=== PATIENT | male | born 1990 | race Asian ===

== ENCOUNTER 2016-08-03 01:14 | Inpatient (IN) | payer OTHER ==
[~2016-08-03] VITALS: Ht 180.3 cm; Wt 74.8 kg
[2016-08-03] MEDS ORDERED: CELE50CA PO (01:32)
[2016-08-03] MEDS ORDERED: COLA100C3 PO (01:33)
[2016-08-03] MEDS ORDERED: MORPPOW (01:35)
[2016-08-03] MEDS ORDERED: OXYC1TAB23 PO (01:36)
[2016-08-03 02:03] LABS: BASO % 0.2 % (0.0-1.0); EOS # 0.3 K/mm3 (0.0-0.50); EOS % 2.2 % (0.0-3.0); LARGE UNSTAINED CELL # 0.1 K/mm3 (0.0-0.4); LARGE UNSTAINED CELL % 0.4 % (0.0-4.0); LYMPH # 0.7 K/mm3 (1.5-6.5); LYMPH % 4.8 % (24.0-44.0); MEAN CORPUSCULAR HEMOGLOBIN 33.2 pg (27.0-33.0); MEAN CORPUSCULAR VOLUME 92.2 fl (80.0-96.0); MONO # 0.5 K/mm3 (0.0-0.8); MONO % 3.6 % (0.0-5.0); NEUTROPHILS % 88.8 % (36.0-66.0); PLATELET COUNT, AUTOMATED 191 k/mm3 (150-450); RED CELL DISTRIBUTION WIDTH 11.6 % (11.5-14.5); WHITE BLOOD COUNT 13.5 K/mm3 (4.0-10.0)
[2016-08-03 02:21] LABS: ANION GAP 7 MEQ/L (8-16); BLOOD UREA NITROGEN 21 MG/DL (7-18); CALCIUM LEVEL 9.2 MG/DL (8.5-10.1); CARBON DIOXIDE LEVEL 32 MEQ/L (21-32); CHLORIDE LEVEL 100 MEQ/L (98-107); CREATININE FOR GFR 1.08 MG/DL (0.70-1.30); GLOMERULAR FILTRATION RATE > 60.0 (>60); GLUCOSE, FASTING 108 MG/DL (70-105); POTASSIUM SERUM 3.7 MEQ/L (3.5-5.1); SODIUM LEVEL 139 MEQ/L (136-145)
[2016-08-03] MEDS ORDERED: ACETAMINOPHEN TAB 650MG DOSE (2X325MG) PO ONE (06:15)
--- NOTE | 2016-08-03 07:58 | REP ---
Clinical: Status post arthroplasty with fever and pain. Technique: Directed real time ultrasound examination of the left hip using curved array transducer. Findings: Ultrasound examination of the left hip status post arthroscopy demonstrates normal subcutaneous tissues and joint space. No fluid collection or drainable collection/abscess noted. Impression: No discrete fluid collection or drainable collection/abscess. Signed by Christopher Pedro MD 08/03/2016 07:50 A
[2016-08-03] MEDS ORDERED: MORPHINE 4 MG/ML 1ML SYRINGE IV ONE (08:15)
[2016-08-03] MEDS ORDERED: ONDANSETRON 4MG/2ML VIAL (J2405) IV ONE (08:15)
[2016-08-03] MEDS ORDERED: CELE1CAP9 PO (11:17)
[2016-08-03] MEDS ORDERED: MORP15TASA PO (11:17)
[2016-08-03] MEDS ORDERED: BISACODYL 5 MG TAB PO PRN (12:00)
[2016-08-03] MEDS ORDERED: ONDANSETRON 4 MG TAB (S0181) PO PRN (12:00)
--- NOTE | 2016-08-03 12:45 | REP ---
Bilateral lower extremity Duplex Doppler venous ultrasound: Real time compression and duplex Doppler interrogation of the bilateral lower extremity deep venous system is performed. Bilaterally, the common femoral, superficial femoral and popliteal veins are fully compressible with transducer pressure and demonstrate normal spontaneous and phasic flow, without evidence of deep venous thrombosis. Impression: No evidence of deep venous thrombosis of the bilateral lower extremity femoral popliteal venous system. Signed by Jaciel Guthrie MD 08/03/2016 12:37 P
[2016-08-03] MEDS: DOCUSATE SODIUM 100 MG CAP PO SCH ×2 (13:50→20:48)
[2016-08-03] MEDS: PERCOCET 5MG/325MG TAB PO PRN ×2 (13:51→20:49)
[2016-08-03] MEDS: NS 1,000 ML IV SCH (13:51)
[2016-08-03 14:00] VITALS: BP 120/60
[2016-08-03] MEDS: MORPHINE 15 MG SA TAB PO SCH ×2 (14:08→22:42)
--- NOTE | 2016-08-03 15:11 | REP ---
Chest one-view HISTORY: Fever Comparison: None The lungs are clear. The heart is normal in size. The pulmonary vasculature is normal in appearance. Impression: No acute disease. Signed by Cameron Valentino MD 08/03/2016 03:03 P
[2016-08-03 15:50] VITALS: BP 107/59
--- NOTE | 2016-08-03 20:48 | HPE ---
DATE OF ADMISSION: 08/03/2016 PRIMARY CARE PROVIDER: Dami Ashton HISTORY OF PRESENT ILLNESS: The patient is a 25-year-old male with no past medical problem, recently underwent arthroscopy with labrum repair on , postoperative day #4. The patient underwent surgery at [facility] by Dr. Ze Melton. The patient tolerated procedure well until yesterday he started complaining of a fever. He presented to the emergency room today, he was found to have a temperature of 102, he complained of chills and headaches as well as nausea. He denied any diarrhea, any abdominal pain, urinary symptoms. Denied any other upper respiratory tract infection or any cough or chest pain. In the emergency room the patient underwent an ultrasound of the left hip which showed no obvious abscess or pleural fluid collection. Dr. Hurt was contacted from the emergency room and he reviewed the ultrasound and stated that the hip is unlikely source of infection. The patient was admitted under hospitalist service for further investigation. REVIEW OF SYSTEMS: 12-point review of systems obtained all which was negative except for those mentioned above. PAST MEDICAL HISTORY: None. PAST SURGICAL HISTORY: [place] teeth removal. ALLERGIES: CEFTIN, reaction rash. SOCIAL HISTORY: The patient lives alone. Drinks alcohol occasionally. Denies any tobacco use. HOME MEDICATIONS: Include: - Celebrex 200 mg by mouth daily - Colace 100 mg by mouth twice a day - morphine sulfate extended release 15 mg by mouth twice a day - oxycodone/acetaminophen 5/325 1-2 tablets by mouth every 4 hours as needed for pain FAMILY HISTORY: Noncontributory. PHYSICAL FINDINGS: Vital signs: Initially on admission the patient had a temperature of 102.7, pulse of 109, respiratory rate 16, blood pressure is 123/61, pulse oximetry 97% on room air. HEENT: Pupils equally round and reactive to light and accommodation. NECK: Supple, no jugular venous distention (JVD). LUNGS: Clear to auscultation bilaterally. ABDOMEN: Soft, nontender, nondistended. EXTREMITIES: No erythema. Incision on the left hip appears intact. Does not appear to be swollen or warm. Sutures intact. No obvious drainage or discharge from the area. NEUROLOGIC: Cranial nerves II-XII grossly intact. No focal deficits. LABORATORY FINDINGS: WBC 13.5, hemoglobin 14.2, hematocrit 39.6, platelet count 191, sedimentation rate 49, sodium 139, potassium 3.7, chloride 100, BUN 21, creatinine 1.08, fasting glucose 108, lactic acid 1.7, C-reactive protein 10.7. Urinalysis was obtained, +1 bacteria, negative leukocyte esterase, 2 WBCs. ASSESSMENT/PLAN: 1. Fever. Unknown source at this time. Lower extremity ultrasound was done and ruled out deep venous thrombosis (DVT). Ultrasound of the left hip ruled out any abscess formation. Wound appears grossly intact. No obvious discharge. Blood cultures times one are pending. Urine cultures pending. Chest x-ray was ordered, showed no acute disease. The patient did not receive any antibiotics in the emergency room. Will continue to monitor. Await cultures. The patient had not had any fevers after the initial temperature of 102 in the emergency room. 2. Status post arthroscopy with a labrum repair. Postoperative day #4. The patient is to followup with Dr. Hurt upon discharge. Dr. Ahumada was called to the emergency room. He recommended outpatient followup, no need for orthopedics to see inpatient. 3. Deep venous thrombosis (DVT) prophylaxis. We will start the patient on subcutaneous Lovenox while in house. Activity: The patient is on nonweightbearing for the left hip per orthopedic instructions.
[2016-08-04] VITALS: BP 97/50
[2016-08-04] MEDS: NS 1,000 ML IV SCH ×2 (01:17→16:08)
[2016-08-04 04:00] VITALS: BP 95/51
[2016-08-04] MEDS: ACETAMINOPHEN TAB 650MG DOSE (2X325MG) PO PRN ×2 (04:49→16:08)
[2016-08-04 08:00] VITALS: BP 109/58
[2016-08-04 08:10] LABS: MEAN CORPUSCULAR HEMOGLOBIN 32.2 pg (27.0-33.0); MEAN CORPUSCULAR HGB CONC 34.4 g/dl (32.0-36.5); MEAN CORPUSCULAR VOLUME 93.8 fl (80.0-96.0); RED CELL DISTRIBUTION WIDTH 11.9 % (11.5-14.5); WHITE BLOOD COUNT 13.3 K/mm3 (4.0-10.0)
[2016-08-04] MEDS: DOCUSATE SODIUM 100 MG CAP PO SCH ×2 (08:13→20:29)
[2016-08-04] MEDS: ENOXAPARIN 40 MG/0.4 ML SYRINGE (J1650) SC SCH (08:13)
[2016-08-04] MEDS: MORPHINE 15 MG SA TAB PO SCH ×2 (08:14→20:29)
[2016-08-04 08:27] LABS: ALBUMIN 3.2 GM/DL (3.2-5.2); ALBUMIN/GLOBULIN RATIO 0.73 (1.00-1.93); ALKALINE PHOSPHATASE 58 U/L (45-117); ALT/SGPT 29 U/L (12-78); ANION GAP 7 MEQ/L (8-16); AST/SGOT 18 U/L (15-37); BLOOD UREA NITROGEN 14 MG/DL (7-18); CARBON DIOXIDE LEVEL 27 MEQ/L (21-32); CHLORIDE LEVEL 102 MEQ/L (98-107); CREATININE FOR GFR 0.96 MG/DL (0.70-1.30); GLOMERULAR FILTRATION RATE > 60.0 (>60); GLUCOSE, FASTING 112 MG/DL (70-105); MAGNESIUM LEVEL 2.1 MG/DL (1.8-2.4); SODIUM LEVEL 136 MEQ/L (136-145); TOTAL PROTEIN 7.6 GM/DL (6.4-8.2)
[2016-08-04 12:00] VITALS: BP 109/59
[2016-08-04] MEDS ORDERED: ISOVUE-370 76% 100ML VIAL (Q9967) As Ordered ONE (12:35)
--- NOTE | 2016-08-04 14:16 | REP ---
CT ANGIOGRAM OF THE CHEST: TECHNIQUE: Axial contrast enhanced images from the thoracic inlet to the upper abdomen using 100 mL Isovue 370 intravenous contrast material with multiplanar reformations. The lungs are clear with no infiltrate. There is no CT evidence of pulmonary embolism. The heart is normal in size. No infiltrates are seen. There is no pleural or pericardial effusion. There is no adenopathy. There is mild focal fatty infiltration anteriorly in the left lobe of the liver. No other upper abdominal abnormality is seen. IMPRESSION: No CT evidence of pulmonary embolism or acute infiltrate. 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 Signed by Jaciel Guthrie MD 08/04/2016 07:50 P
--- NOTE | 2016-08-04 14:20 | REP ---
CT LEFT FEMUR: CT of the left femur performed in the axial plane with sagittal and coronal reconstruction images. No IV contrast was administered. Left femur demonstrates no fracture or osseous destruction. There appears to be a small amount of fluid in the hip joint. Diffuse subcutaneous edema is seen in the soft tissues of the lateral aspect of the proximal thigh. There is also edema in the tapered soft tissues of the lateral thigh. There does appear to be a sliver of fluid density between the tensor fascia matthias and vastus lateralis. There are a few scattered tiny foci of air in this region as well. The fluid is located in the fascial plane and is likely not drainable. There is no other evidence of fluid collection. There is a small amount of air between the vastus medialis and adjacent adductor muscles in the proximal thigh. IMPRESSION: Diffuse edema in the proximal left thigh laterally in the superficial subcutaneous soft tissues as well as in the deeper soft tissues. Tiny sliver of fluid is seen in the fascial plane between the vastus lateralis and tensor fascia matthias with the thickness of the fluid density about 4 mm. A few scattered tiny foci of air are also seen in this region. The fluid does not appear to be drainable. Signed by Jaciel Guthrie MD 08/04/2016 07:51 P
--- NOTE | 2016-08-04 14:27 | IPN ---
DATE: 08/04/2016 SUBJECTIVE: The patient is seen and examined at the bedside. Chart has been reviewed. The patient had a maximum temperature (t-max) of 102.7 at 1:21 on 08/03/2016. He still complains of pain on flexion and extension at the left hip. Otherwise, he has not noted any worsening swelling of erythema at the site. No other issues, per nursing. Sedimentation rate remains elevated at 59 and C-reactive protein of 19.5. He denies any cough, dysuria, urgency, frequency, chills. No complaints of palpitations or shortness of breath. OBJECTIVE: Temperature 98, pulse 94, respiratory rate 16, blood pressure 109/58, 98% on room air. GENERAL: He is awake, alert, oriented. Answers questions appropriately. LUNGS: Clear to auscultation. No wheezes, rales, or rhonchi. HEART: S1, S2. Sinus rhythm. ABDOMEN: Soft, nontender, nondistended. EXTREMITIES: No pitting edema bilaterally. The patient has notable ecchymotic area on left anterior thigh around the hip area. There is no erythema. The incision of the left hip appears to be intact. No significant edema or erythema. Sutures are intact. No drainage or purulent discharge at the site. Range of motion is limited. Flexion is worse on extension. The patient complains of pain. LABORATORY DATA: White count 13.3, hemoglobin 12, hematocrit 37, platelet count 206. Sedimentation rate of 59, C-reactive protein of 19.5. Sodium 136, potassium 4, chloride 102, bicarbonate 27, BUN 14, creatinine 0.96, glucose of 112. MICROBIOLOGY: Blood culture with no growth. Urine culture from 08/03/2016 with no growth. IMAGING STUDIES: Vascular ultrasound of the lower extremities with no deep vein thrombosis (DVT). Extremity ultrasound with no fluid collection or drainable abscess of left hip. ASSESSMENT AND PLAN: This is a 25-year-old male status post left hip labral tear repair at [facility] by orthopedic surgeon, Dr. Ze Melton, last . The patient tolerated the procedure well until Wednesday evening when he developed a temperature of 102 at home with complaints of chills and headache and nausea. The patient denied worsening pain. No difficulty with ambulating aside from being off weight bearing on the left lower extremity. Ultrasound showed no drainable abscess or fluid collection. The patient remains with elevated sed rate and C-reactive protein, fever of 102.7 yesterday with white count of 13.3 with no identifiable infectious cause for his fever. CURRENT ISSUES: 1. Recurrent fever. At this time, the patient is currently on no antibiotic. Ultrasound of the left extremity shows no drainable abscess or fluid collection. Sed rate and C-reactive protein are both elevated. White count is slightly elevated. No empiric antibiotics until a source is identified. We will obtain a clearer picture with CT of the left hip, consult Dr. Shukri Yanez. No empiric antibiotics for now. Per Dr. Melton, orthopedic surgeon that operated on him last , unlikely to be a left labral repair issue, as there is no drainable abscess. Rule out other infectious etiology, such as viral symptoms. Therefore, we will check respiratory panel, methicillin resistant Staphylococcus aureus (MRSA) screen. Blood and urine cultures and chest x-ray are all negative. Rule out PE as possible source of fever due to risk factors of recent orthopedic surgery, and [address] from [place]. 2. Left labral tear repair. The patient follows with orthopedic surgery, Dr. Marcellus Ahumada was consulted by the emergency room who recommended no inpatient investigations by orthopedic surgery. 3. Deep vein thrombosis (DVT) prophylaxis. The patient is postoperative day #5 and drove 6 hours. Ultrasound of the lower extremities were negative. We will check CT of the chest to rule out pulmonary embolism despite no signs of tachycardia, diaphoresis or pleuritic chest pain or shortness of breath. [facility]
[2016-08-04 16:00] VITALS: BP 108/54
--- NOTE | 2016-08-04 18:15 | PHACANCOPD ---
PHARMACY VANCOMYCIN DOSING Pt Demographics Demographics Patient Age:25 , Weight:74.840 , Gender: male Adjusted Body Weight Date: 08/04/16, Adjusted Body Weight: [74.84] Kg Events Past 24 Hours Events Past 24 Hours: NO: Dialysis, Diuretic Therapy, Change in CrCl, Fever, Elevation in WBC, Pending Diagnostics, Pending Procedures, Other Vancomycin Vancomycin indication: Cellulitis Vancomycin Target Ranges: 15-20 mcg/ml Vancomycin Load Y/N: Yes Load Dose Date Time Vancomycin Load Dose:1.5g Date: 08/04/16 Time: 19:00 Vancomycin Dose Date: 08/04/16. Current Vancomycin Dose: [1g iv q8h] Intermittent Dosing?: No Labs Labs Item Value Date Time White Blood Count 13.5 K/mm3 H 08/03/16 0154 White Blood Count 13.3 K/mm3 H 08/04/16 0729 Creatinine 1.08 MG/DL 08/03/16 0154 Creatinine 0.96 MG/DL 08/04/16 0729 C-Reactive Protein, Quantitative 19.50 MG/DL H 08/04/16 0729 C-Reactive Protein, Quantitative 10.70 MG/DL H 08/03/16 1206 Vital Signs Label Value Date Time Patient Temperature 98.0 degrees F 08/04/16 0800 Temperature Source Temporal 08/04/16 0800 Patient Temperature 99.1 degrees F 08/04/16 1200 Temperature Source Temporal 08/04/16 1200 Patient Temperature 101.7 degrees F 08/04/16 1600 Temperature Source Temporal 08/04/16 1600 Patient Temperature 99.8 degrees F 08/04/16 1720 Temperature Source Temporal 08/04/16 1720 Micro Microbiology 08/03/16 Blood Culture - Preliminary, Resulted No growth after 24 hours . All specim... 08/04/16 MRSA Screen, Received Pending 08/04/16 Respiratory Virus Panel (PCR) ([facility]) - Final, Complete 08/03/16 Urine Culture - Final, Complete Creatinine Clearance Date:08/04/16. Creatinine Clearance: [125.3ml/min]. Assessment and Plan Maintaining Current Dose?: Yes Reason for dose change: No Dose Change Pharmacist Note Pharmacist Note Date: 08/04/16. Pharmacist note: Pt is a 25 y/o male being treated for cellulitis target trough 15-20mcg/ml. Pt does not have a history of vancomycin therapy here at [facility]. A loading dose of 1.5g was started 08/04 @19:00 followed by maintenance therapy of 1g iv q8h starting 08/05 @ 3:00. We will continue to monitor and adjust dose as needed. [facility] August 04, 2016 18:15
--- NOTE | 2016-08-04 18:29 | CR ---
DATE OF CONSULTATION: 08/04/2016 CONSULTATION REPORT FOR: Dr. Melinda Beatty REASON FOR CONSULTATION: Evaluation of fever in a patient who had left hip arthroplasty. 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 The patient had arthroscopic surgery for repair done by Dr. Ze Melton at [facility]. The patient had the surgery done last on 07/30/2016, was in the hospital for 24 hours and then came home on Wednesday. The patient started having fever on Wednesday and Wednesday up to 102. He was admitted to the hospital on 08/03/2016 with chills, fever up to 102 with headache and some nausea. He denies having any diarrhea, abdominal pain or vomiting. He denies any dysuria or drainage. He denies upper respiratory tract infection, chest pain, shortness of breath. The patient was admitted by the hospitalist for evaluation. PAST MEDICAL HISTORY: Negative. PAST SURGICAL HISTORY: [place] teeth removal, left hip labral tear status post arthroscopic surgery last week. SOCIAL HISTORY: He lives alone. He is . 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 He was not sick. He drinks alcohol occasionally. He denies any tobacco use. His father is a physician in [place]. He grew up in [place]. MEDICATIONS: - Celebrex 200 mg daily - Colace 100 mg twice a day - morphine - Percocet All started postoperatively. FAMILY HISTORY: Nonrevealing. PHYSICAL EXAMINATION: Healthy-looking gentleman in no acute distress, looks frustrated from being in the hospital. Temperature 101.7, pulse 103, respirations 14, blood pressure 108/54, oxygen saturation 98% on room air. HEART: Normal S1, S2 with no murmurs, rubs or gallops. LUNGS: Clear. No wheezes, rales, or rhonchi. ABDOMEN: Soft, nontender. No hepatosplenomegaly. BACK: No costovertebral angle (CVA) or lumbosacral tenderness. EXTREMITIES: No clubbing, cyanosis or edema. No calf tenderness. Left hip, normal range of motion. He is able to hip flex at least 90 degrees and externally rotate as well. He has a hematoma at the anterior thigh arthroscopically and some tenderness along that area but no significant redness. LABORATORY DATA: White count is 13.3, hemoglobin 12.8, hematocrit 37.3, platelets 206. ESR yesterday 49, today 59. Sodium 136, potassium 4, chloride 102, bicarbonate 27, BUN 14, creatinine 0.96, glucose 112, calcium 9, magnesium 2.1, AST 18, ALT 29, alkaline phosphatase 58, CRP 19.5, albumin 3.2. Blood culture was no growth after 24 hours on 08/03/2016. Urine culture was negative. Respiratory PCR panel was negative for 20 different pathogens. MRSA screen is pending. IMAGING STUDIES: CT angiogram done on 08/04/2016 had no PE. Chest x-ray had no acute disease. Vascular ultrasound showed no DVT. Extremity CT showed diffuse edema on the proximal left side laterally in the superficial subcutaneous soft tissue as well as the deeper tissues with a tiny sliver of fluid seen in the fascial plane between the vastus lateralis and tensor fascia matthias with thickness of the fluid about 4 mm. There is a few scattered tiny foci of air are seen in that region. The fluid does not appear to be drainable. This was read by Dr. Russell Guthrie. IMPRESSION: This is a 25-year-old gentleman who had left hip arthroscopic surgery for repair of a labral tear who developed postoperative fever on day number three with chills. White count of 13,000, sedimentation rate of 59, and a C-reactive protein (CRP) which has increased from 10.7 yesterday to 19.5. There has been no other foci of infection. Chest x-ray, chest CT, lower extremity DVT studies are all negative. Respiratory panel was negative for any respiratory viruses. The patient has no gastrointestinal (GI) or genitourinary () complaints. His only complaint is discomfort in his left thigh muscle which is worse than after surgery. He could have a mild cellulitis/myositis versus just fever from the hematoma. PLAN: Repeat another set of blood cultures as he had a recurrent fever and he has only had one blood culture done. The patient is allergic to cefuroxime and therefore, we will use IV vancomycin 1 gram every eight hours to see if that will break his fever. If it does and he feels better, he could be discharged home on oral Bactrim. I have discussed the case with his father who is a physician. He could follow him up as an outpatient and if he has recurrent fever, he will need to go back to [facility] to be evaluated by his surgeon. His father is agreeable. His mother is here and she was supposed to drive him back to [place] to spend another month at home for convalescence. The father is agreeable with that plan as well as the son. Make sure if the patient gets discharged that all of his films are given to him on a CD to take with him to his primary care provider and to his orthopedic surgeon.
[2016-08-04] MEDS: VANCOMYCIN HCL 1,000 MG, VIAL MATE ADAPTER 1 EACH in D5W 250 ML IV SCH (18:38)
[2016-08-04 20:00] VITALS: BP 111/55
[2016-08-04] MEDS ORDERED: VANCOMYCIN HCL 500 MG in D5W MINI-BAG PLUS 100 ML IV ONE (20:00)
[2016-08-05] VITALS: BP 97/53
[2016-08-05] MEDS: VANCOMYCIN HCL 1,000 MG, VIAL MATE ADAPTER 1 EACH in D5W 250 ML IV SCH ×3 (03:40→19:04)
[2016-08-05 04:00] VITALS: BP 99/53
[2016-08-05] MEDS: PERCOCET 5MG/325MG TAB PO PRN (07:17)
[2016-08-05 07:22] LABS: MEAN CORPUSCULAR HEMOGLOBIN 32.7 pg (27.0-33.0); MEAN CORPUSCULAR HGB CONC 35.1 g/dl (32.0-36.5); MEAN CORPUSCULAR VOLUME 93.3 fl (80.0-96.0); RED CELL DISTRIBUTION WIDTH 11.8 % (11.5-14.5); WHITE BLOOD COUNT 9.8 K/mm3 (4.0-10.0)
[2016-08-05 07:49] LABS: ALBUMIN 2.8 GM/DL (3.2-5.2); ALBUMIN/GLOBULIN RATIO 0.72 (1.00-1.93); ALKALINE PHOSPHATASE 60 U/L (45-117); ALT/SGPT 31 U/L (12-78); ANION GAP 8 MEQ/L (8-16); AST/SGOT 22 U/L (15-37); BILIRUBIN,TOTAL 0.8 MG/DL (0.2-1.0); BLOOD UREA NITROGEN 10 MG/DL (7-18); CALCIUM LEVEL 8.4 MG/DL (8.5-10.1); CARBON DIOXIDE LEVEL 28 MEQ/L (21-32); CHLORIDE LEVEL 103 MEQ/L (98-107); CREATININE FOR GFR 0.89 MG/DL (0.70-1.30); GLOMERULAR FILTRATION RATE > 60.0 (>60); GLUCOSE, FASTING 95 MG/DL (70-105); MAGNESIUM LEVEL 2.1 MG/DL (1.8-2.4); POTASSIUM SERUM 3.9 MEQ/L (3.5-5.1); SODIUM LEVEL 139 MEQ/L (136-145); TOTAL PROTEIN 6.7 GM/DL (6.4-8.2)
[2016-08-05 08:00] VITALS: BP 118/56
[2016-08-05] MEDS: ACETAMINOPHEN TAB 650MG DOSE (2X325MG) PO SCH ×3 (09:00→21:04)
[2016-08-05] MEDS: ENOXAPARIN 40 MG/0.4 ML SYRINGE (J1650) SC SCH (09:12)
[2016-08-05] MEDS: DOCUSATE SODIUM 100 MG CAP PO SCH ×2 (09:12→21:02)
[2016-08-05] MEDS: MORPHINE 15 MG SA TAB PO SCH ×2 (09:14→21:03)
[2016-08-05] MEDS ORDERED: KETOROLAC 30 MG/ML VIAL (J1885) IV ONE (10:15)
[2016-08-05] MEDS ORDERED: MORPHINE 30 MG TAB **MSIR PO PRN (10:15)
[2016-08-05] MEDS ORDERED: MOM 30ML SUSPENSION UDC PO PRN (10:15)
[2016-08-05] MEDS: NS 1,000 ML IV SCH ×2 (11:19→20:15)
[2016-08-05 12:00] VITALS: BP 104/56
--- NOTE | 2016-08-05 12:25 | IPN ---
DATE: 08/05/2016 The patient seen and examined at the bedside. The chart has been reviewed. This morning, the patient complains of worse pain than yesterday in the left anterior thigh. He has no worsening swelling. No chills. He had persistent low grade temperature of 100.0, currently on vancomycin every 8 hours at 1 gram. The patient is non-weight bearing on the left lower extremity, but still complains of severe limitation of activity. Temperature-maximum (T-max) 101.7, current temperature 100.0, pulse 81, respiratory rate 16, blood pressure 118/56, and 98% on room air. Generally, the patient is awake, alert and oriented times three, answering questions appropriately. Lungs are clear to auscultation. No wheezing, rales or rhonchi. Heart: S1, S2. Sinus rhythm. Abdomen: Soft. Nontender. Nondistended. Positive bowel sounds. Extremities: The patient has bruising on the left hip with left tender thigh and some edema laterally in the subcutaneous tissue. LABORATORY DATA: White count 9.8, hemoglobin 11, hematocrit 32, and platelets 187. Sedimentation rate 65. CRP 13. Sodium 139, potassium 3.9, chloride 103, bicarbonate 28, BUN 10, creatinine 0.89, glucose 95, CRP 13. Two sets of blood cultures 5, 2 and 3 still pending. ASSESSMENT AND PLAN: This is a 25-year-old with no past medical history who had a left hip labral tear status post arthroscopic surgery on who presents with a fever starting Wednesday/Wednesday up to 102 and complaints of chills. CT shows diffuse edema with a few scattered tiny foci of air, but no drainable abscess. White count 13, sedimentation rate 59, CRP to 19.5 CT of chest had no pulmonary embolism (PE). Lower extremity deep vein thrombosis (DVT) was negative. Respiratory panel negative. ASSESSMENT AND PLAN: 1. Recurrent fever. No drainable abscess on the site. Currently on IV vancomycin for possible cellulitis. Allergic to cefuroxime. The patient does not feel better, still complains of a lot of pain. Plans are for oral Bactrim as outpatient once the pain is improved. 2. Left hip labral tear repair. Followup with Dr. Melton or orthopedic surgery in [place]. This will be the patient's decision. At this time, continue with IV antibiotics and oral Bactrim as outpatient. Pain control - will change to morphine 15 mL every 4 hours as needed, Tylenol three times a day. Pain management consult. Nonweight bearing on the left lower extremity. Outpatient followup with his orthopedic surgeon. DISPOSITION: Await improvement in pain prior to discharge home. LUCINDA
[2016-08-05] MEDS: LIDOCAINE 5% OINT 30 GM TOP SCH ×3 (13:37→21:00)
[2016-08-05 16:00] VITALS: BP 110/54
[2016-08-05 21:00] VITALS: BP 104/57
[2016-08-06] VITALS (7 sets, daily range): BP systolic 93–127; BP diastolic 51–64
[2016-08-06] MEDS ORDERED: KETOROLAC 30 MG/ML VIAL (J1885) IV SCH
[2016-08-06] MEDS: VANCOMYCIN HCL 1,000 MG, VIAL MATE ADAPTER 1 EACH in D5W 250 ML IV SCH ×3 (03:37→19:03)
[2016-08-06] MEDS: ACETAMINOPHEN TAB 650MG DOSE (2X325MG) PO SCH ×3 (06:08→21:00)
[2016-08-06] MEDS ORDERED: FIORICET TAB PO ONE (08:15)
[2016-08-06] MEDS ORDERED: KETOROLAC 30 MG/ML VIAL (J1885) IV ONE (08:15)
--- NOTE | 2016-08-06 09:20 | IPN ---
DATE: 08/06/2016 Min is frustrated from being in the hospital. He states that the pain has localized to the left anterior thigh and he has noticed some induration in that area and warmth. He has severe pain when he steps on his foot, mostly in the anterior thigh again. He has normal range of motion of his hip and normal abduction. Temperature was 101.9 at 5:00 p.m. and currently 99.3, pulse 84, respirations 18, blood pressure 104/57, oxygen saturation 99% on room air. HEART: Normal S1, S2 with no murmurs, rubs or gallops. LUNGS: Clear. No wheezes, rales or rhonchi. ABDOMEN: Soft, nontender. EXTREMITIES: No edema. Left thigh induration measuring about 7 x 7 cm in the mid thigh area. Hip has normal flexion and abduction. LABORATORY DATA: White count 9.8, hemoglobin 11.6, hematocrit 32.9, platelets 65. Sodium 139, potassium 3.9, chloride 103, bicarbonate 28, BUN 10, creatinine 0.89, glucose 95, calcium 8.4. Liver profile normal. CRP 13.3, albumin 2.8. Blood cultures have been negative times 48 hours, two sets. Respiratory virus panel negative. Urine culture negative. Methicillin resistant Staphylococcus aureus (MRSA) screen is negative. Blood culture drawn on 08/05. IMPRESSION: 1. Postoperative fever after left hip arthroscopy for a labral tear. The most likely source is a localized skin and soft tissue infection of the left anterior thigh muscle. The patient has been on IV vancomycin for 24 hours. There has been some improvement in white count and CRP, but the patient now has more localized pain in the thigh area. PLAN: Obtain CT with contrast tomorrow to followup to see if there is a drainable abscess. If there is an abscess it will need to be drained by interventional radiology. Otherwise, we will continue with IV vancomycin once the patient is afebrile, then he could be switched to oral Bactrim for discharge. His mother is here and is planning to take him to [place] where he can followup there or at [place] with his orthopedic surgeon. Also orthopedics can see here in followup to discuss the case with his orthopedic surgeon in [place].
--- NOTE | 2016-08-06 09:31 | REP ---
CT LEFT FEMUR: CT left femur performed in the axial plane without IV contrast, with sagittal and coronal reconstruction images. Comparison made with prior study of 08/04/2016. Once again, the left femur appears essentially normal with no fracture or osseous destruction. Diffuse subcutaneous edema in the lateral thigh soft tissues is again noted and this has not significantly changed. There is significant decrease in the foci of scattered air in the soft tissues. A tiny amount of air is seen deep between the vastus medialis and adjacent adductor muscles. There is diffuse edema in the anterior compartment of the proximal thigh with poor definition of the facial planes. There again appears to be phlegmonous change or fluid in the fascial plane between the tensor fascia matthias and vastus lateralis. This appears to have slightly increased since the prior exam. However, evaluation for fluid is limited without IV contrast. IMPRESSION: Compared to the prior exam of 08/04/2016, the hypodensity in the fascial plane between the vastus lateralis and tensor fascia matthias has mildly increased in thickness to about 7 mm. However, it is difficult to evaluate if this represents increased phlegmonous change and edema versus fluid. Ultrasound would better evaluate for the presence of any drainable fluid. Signed by Jaciel Guthrie MD 08/07/2016 05:09 P
[2016-08-06 10:05] LABS: MEAN CORPUSCULAR HEMOGLOBIN 32.4 pg (27.0-33.0); MEAN CORPUSCULAR HGB CONC 34.2 g/dl (32.0-36.5); MEAN CORPUSCULAR VOLUME 94.9 fl (80.0-96.0); RED CELL DISTRIBUTION WIDTH 11.2 % (11.5-14.5); WHITE BLOOD COUNT 11.8 K/mm3 (4.0-10.0)
[2016-08-06] MEDS: DOCUSATE SODIUM 100 MG CAP PO SCH ×2 (10:26→21:01)
[2016-08-06 10:27] LABS: ALBUMIN/GLOBULIN RATIO 0.65 (1.00-1.93); ALKALINE PHOSPHATASE 67 U/L (45-117); ALT/SGPT 28 U/L (12-78); ANION GAP 11 MEQ/L (8-16); AST/SGOT 14 U/L (15-37); BLOOD UREA NITROGEN 11 MG/DL (7-18); CALCIUM LEVEL 8.7 MG/DL (8.5-10.1); CARBON DIOXIDE LEVEL 27 MEQ/L (21-32); CHLORIDE LEVEL 97 MEQ/L (98-107); CREATININE FOR GFR 0.91 MG/DL (0.70-1.30); GLOMERULAR FILTRATION RATE > 60.0 (>60); GLUCOSE, FASTING 143 MG/DL (70-105); POTASSIUM SERUM 3.6 MEQ/L (3.5-5.1); SODIUM LEVEL 135 MEQ/L (136-145); TOTAL PROTEIN 7.6 GM/DL (6.4-8.2)
[2016-08-06] MEDS: MORPHINE 15 MG SA TAB PO SCH ×2 (10:27→21:00)
[2016-08-06] MEDS: ENOXAPARIN 40 MG/0.4 ML SYRINGE (J1650) SC SCH (10:28)
[2016-08-06] MEDS: NS 1,000 ML IV SCH ×2 (10:46→19:03)
[2016-08-06] MEDS: LIDOCAINE 5% OINT 30 GM TOP SCH ×3 (10:48→21:00)
--- NOTE | 2016-08-06 13:21 | REP ---
ULTRASOUND LEFT THIGH SOFT TISSUES: Real-time sonographic evaluation of the left thigh soft tissues performed. Laterally there is an apparent small area of fluid containing low level echoes measuring 4.8 x 1.2 x 5.6 cm. There is surrounding soft tissue edema. There are tiny subcentimeter pockets of fluid in the subcutaneous soft tissues. Deep to the quadriceps muscles is a hypoechoic area measuring 4.4 x 2.0 x 1.6 cm which is of uncertain significance. This may represent hematoma. IMPRESSION: In the superior lateral left thigh soft tissues, there appears to be a small area of complex fluid 4.8 x 1.2 x 5.6 cm. Signed by Jaciel Guthrie MD 08/07/2016 05:12 P
--- NOTE | 2016-08-06 14:19 | IPN ---
DATE: 08/06/2016 The patient continues to have maximum temperature (t-max) of 101.9 on 08/05/2016 at 1700 hours and 100.0 at 4:00 a.m. this morning. He currently complains of increasing pain if he flexes at the hip, which is located in the left anterior thigh. He is currently eggshell touch toe weight bearing on the left lower extremity. No chills. No cough. No dysuria, urgency, frequency. VITAL SIGNS: Temperature 97.3, maximum temperature (t-max) of 101.9. Pulse 89, respiratory rate 18, blood pressure 127/50, and 98% on room air. GENERAL: Awake, alert and oriented to person, place and time. No respiratory distress. HEENT: Pupils are round, reactive to light and accommodation. Extraocular muscles are intact. LUNGS: Clear to auscultation. No wheezing, rales or rhonchi. HEART: S1, S2. Sinus rhythm. ABDOMEN: Soft. Nontender. Nondistended. Positive bowel sounds. No hepatosplenomegaly. EXTREMITIES: No pitting edema. Left anterior thigh continues to have significant edema, painful to touch. Left hip has ecchymotic areas and able to flex and extend but with some difficulty. Non-weight bearing. LABORATORY DATA: White count 11.8, hemoglobin 12, hematocrit 37, platelet count 277, sodium 135, potassium 3.6, chloride 97, bicarbonate 27, BUN 11, creatinine 0.91, glucose of 143. The patient's admission hemoglobin was 14 and current hemoglobin is 12.8. Blood culture, two sets on 08/04, 08/05 and 08/03 are all negative. Methicillin resistant Staphylococcus aureus (MRSA) screen negative. Respiratory panel negative. Urine culture negative. Repeat CT of the extremity on 08/06 shows hypodensity in the fascial plane between vastus lateralis and fascia matthias has mildly increased in thickness to 7 mm. Difficult to evaluate if this represents increased change or edema versus fluid. Ultrasound to evaluate drainable fluid. 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 Melton. Developed fever starting Wednesday and Wednesday up to 102, complains of chills. The patient was admitted for evaluation and fever to rule out abscess formation. No antibiotics were given. CT shows diffuse edema with a few scattered tiny foci of air, but no drainable abscess. Ultrasound was unremarkable with diffuse fluid, which was clear and no definitive drainable fluid. White count was 13,000, sedimentation rate was elevated, as well as CRP CT of chest showed no pulmonary embolism (PE). Lower extremity deep vein thrombosis (DVT) was negative. Respiratory panel, UA and blood cultures were all negative. Dr. Shukri Yanez has been consulted. CURRENT ISSUES: 1. Recurrent fever. No drainable abscess at the surgical the site. Repeat CT shows worsening edema but no definite abscess formation. Ultrasound recommended. We have ordered an ultrasound of the extremity, as well as orthopedic surgery consultation with Dr. Hurt. Currently on IV vancomycin 1 gram every 8 hours with worsening white count, recurrent fevers and elevation in sed rate and C-reactive protein. No changes in antibiotics unless recommended by Dr. Shukri Yanez, infectious disease specialist. 2. Left hip labral tear repair with postoperative fever. Per his orthopedic surgeon, Dr. Melton, at [place], [place], unlikely to be related to recent laparoscopic surgery. Unlikely to have developed significant hematoma in light of the fact that this was a laparoscopic surgery. Once fevers have resolved, recommendation from infectious disease is to discharge him back for immediate followup with his orthopedist at [place].
--- NOTE | 2016-08-06 14:44 | PHACANCOPD ---
PHARMACY VANCOMYCIN DOSING Pt Demographics Demographics Patient Age:25 , Weight:74.840 , Gender: male Adjusted Body Weight Date: 08/04/16, Adjusted Body Weight: [74.84] Kg Events Past 24 Hours Events Past 24 Hours: NO: Dialysis, Diuretic Therapy, Change in CrCl, Fever, Elevation in WBC, Pending Diagnostics, Pending Procedures, Other Vancomycin Vancomycin indication: Cellulitis Vancomycin Target Ranges: 15-20 mcg/ml Vancomycin Load Y/N: Yes Load Dose Date Time Vancomycin Load Dose:1.5g Date: 08/04/16 Time: 19:00 Vancomycin Dose Date: 08/04/16. Current Vancomycin Dose: [1g iv q8h] Intermittent Dosing?: No Labs Labs Item Value Date Time White Blood Count 13.3 K/mm3 H 08/04/16 0729 White Blood Count 9.8 K/mm3 08/05/16 0655 White Blood Count 11.8 K/mm3 H 08/06/16 0948 C-Reactive Protein, Quantitative 19.50 MG/DL H 08/04/16 0729 C-Reactive Protein, Quantitative 13.30 MG/DL H 08/05/16 0655 C-Reactive Protein, Quantitative 12.90 MG/DL H 08/06/16 0948 Creatinine 0.91 MG/DL 08/06/16 0948 Vancomycin Level Trough 14.6 UG/ML 08/06/16 0948 Vital Signs Label Value Date Time Patient Temperature 100.0 degrees F 08/06/16 0400 Temperature Source Oral 08/06/16 0400 Patient Temperature 98.6 degrees F 08/06/16 1200 Temperature Source Temporal 08/06/16 1200 Micro Microbiology 08/05/16 Blood Culture - Preliminary, Resulted No growth after 24 hours . All specim... 08/04/16 Blood Culture - Preliminary, Resulted No growth after 24 hours . All specim... 08/03/16 Blood Culture - Preliminary, Resulted No Growth after 72 hours. All specime... 08/04/16 MRSA Screen - Final, Complete 08/04/16 Respiratory Virus Panel (PCR) ([facility]) - Final, Complete 08/03/16 Urine Culture - Final, Complete Creatinine Clearance Date:08/04/16. Creatinine Clearance: [125.3ml/min]. Assessment and Plan Maintaining Current Dose?: Yes Reason for dose change: No Dose Change Pharmacist Note Pharmacist Note 08/06: Vanco trough came back at 14.6 today. His WBC is within normal limits, but is still experiencing fevers. CRP is trending down. Patient is experiencing increased pain around wound. Per Dr. Yanez's note he is continue his Vancomycin until he is afebrile then switch to PO Bactrim. We will continue to monitor and make adjustments as necessary. Date: 08/04/16. Pharmacist note: Pt is a 25 y/o male being treated for cellulitis target trough 15-20mcg/ml. Pt does not have a history of vancomycin therapy here at [facility]. A loading dose of 1.5g was started 08/04 @19:00 followed by maintenance therapy of 1g iv q8h starting 08/05 @ 3:00. We will continue to monitor and adjust dose as needed. COLTON MARTINEZ PHARMACY August 06, 2016 14:44
[2016-08-06] MEDS ORDERED: NS 1,000 ML IV ONE (16:00)
[2016-08-06] MEDS ORDERED: LIDOCAINE 1% MDV 20ML VIAL As Ordered ONE (16:03)
--- NOTE | 2016-08-06 16:58 | CR.PDOC ---
[facility] Consultation Consultation DATE OF CONSULTATION: August 03, 2016 at 05:48 REFERRING PROVIDER: Dr. Yanez, infectious disease ATTENDING PHYSICIAN: Dr. Miki Fry- Orthopedic surgery REASON FOR CONSULTATION/CHIEF COMPLAINT: Fevers s/p L hip arthroscopy. 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 Melton at [place]. Patients post operative course has been complicated by fever to 102F at home on POD3 for which he presented to the [facility] ER. Patient denies associated increasing hip pain with his fever. Patient was admitted to the hospitalist service and had extensive workup to include DVT studies, blood cultures, urine cultures, and hip ultrasound, all of which have been negative. Orthopedics was consulted on admission and suspicion for intraarticular hip infection was low given the lack of effusion on ultrasound. Patient earlier today had a superficial fluid collection drained by the interventional radiology service. Patient reports that his pain resolved yesterday. Last reported fever 24 hours ago. Has been on IV vancomycin for 24h. ALLERGIES: Please see below. HOME MEDICATIONS: Please see below. PAST MEDICAL HISTORY: 1. none. PAST SURGICAL HISTORY: 1. L hip scope per HPI 2. [place] tooth removal FAMILY HISTORY: non contributory SOCIAL HISTORY: Employment: Active duty job placement officer stationed at [employer] Tobacco use:none ETOH: none Illicit drug use: none IV drug use: none REVIEW OF SYSTEMS: CONSTITUTIONAL: + Fevers per HPI. CARDIOVASCULAR: No chest pain or palpitations. RESPIRATORY: No cough or wheeze. GENITOURINARY: No pain or burning with urination. MUSCULOSKELETAL: + recent hip arthroscopy with pain per HPI. GASTROINTESTINAL: NO nausea, vomiting, diarrhea. PHYSICAL EXAMINATION: VITAL SIGNS: Please see below. GENERAL APPEARANCE: Well nourished, appears stated age, NAD. RESPIRATORY: Non-labored breathing. CARDIOVASCULAR: 2+ DP/PT pulses, brisk capillary refill all digits LLE. ABDOMEN: non-tender, non distended. EXTREMITIES: Focused exam of the left hip demonstrates no pain with logroll. No pain with axial load of the hip. Arthroscopy wounds appear normal and well healing with no surrounding erythema or drainage. No surrounding induration. There is mild ecchymosis on the anterior aspect of the hip with mild tenderness around the area of recent aspiration. There is no palpable fluctuance in the anterior hip. LABORATORY DATA: Please see below. Recent CT scan and ultrasound identified a small superficial fluid collection that appeared to be slightly increased in size from earlier studies. CT scan difficult to interpret as it is difficult to distinguish between normal findings s/p hip arthroscopy ASSESSMENT/PLAN: 25 y/o male POD7 s/p L hip arthroscopy with post op fever. Pain has resolved and has been afebrile x 24 h after being on vancomycin IV x 48h. Post op intraarticular hip joint infection extremely unlikely given normal appearing wounds and benign hip exam with lack of effusion on multiple imaging studies 1. It is possible that a post op hematoma could be causing some pain, but there is minimal bleeding in arthroscopic hip surgery, so unlikely. 2. Based on hip exam, there is no indication for acute surgical intervention for surgical site infection 3. Recommend continued antibiotic treatment per ID recommendations. 4. Further imaging is of limited utility as it is difficult to distinguish between normal post op changes and a pathologic finding as it is rare to obtain such imaging in the acute post operative period. 5. Recommend discharge to home when deemed appropriate by hospitalist and routine follow up with Dr. Melton as scheduled Vital Signs/I&O Vital Signs Date Time Temp Pulse Resp B/P (MAP) Pulse Ox O2 Delivery O2 Flow Rate FiO2 08/06/16 16:00 98.6 88 18 122/64 (83) 100 Room Air I&O- Last 24 Hours up to 6 AM 08/06/16 06:00 Intake Total 1850 ml Output Total 3100 ml Balance -1250 ml Laboratory Data Labs 24H Laboratory Tests 2 08/06/16 09:48: Erythrocyte Sedimentation Rate 84H, Anion Gap 11, Glomerular Filtration Rate > 60.0, Blood Urea Nitrogen 11, Creatinine 0.91, Sodium Level 135L, Potassium Level 3.6, Chloride Level 97L, Carbon Dioxide Level 27, Calcium Level 8.7, Aspartate Amino Transf (AST/SGOT) 14L, Alanine Aminotransferase (ALT/SGPT) 28, Alkaline Phosphatase 67, Total Bilirubin 1.0, Total Protein 7.6, Albumin 3.0L, Magnesium Level 2.0, C-Reactive Protein, Quantitative 12.90H, Albumin/Globulin Ratio 0.65L, Vancomycin Level Trough 14.6 CBC/BMP Laboratory Tests 08/06/16 09:48 Red Blood Count 3.95 L, Mean Corpuscular Volume 94.9, Mean Corpuscular Hemoglobin 32.4, Mean Corpuscular Hemoglobin Concent 34.2, Red Cell Distribution Width 11.2 L, Calcium Level 8.7, Aspartate Amino Transf (AST/SGOT) 14 L, Alanine Aminotransferase (ALT/SGPT) 28, Alkaline Phosphatase 67, Total Bilirubin 1.0, Total Protein 7.6, Albumin 3.0 L Microbiology Microbiology 08/05/16 Blood Culture - Preliminary, Resulted No growth after 24 hours . All specim... 08/04/16 Blood Culture - Preliminary, Resulted No growth after 24 hours . All specim... 08/03/16 Blood Culture - Preliminary, Resulted No Growth after 72 hours. All specime... 08/06/16 Anaerobic Culture, Received Pending 08/04/16 MRSA Screen - Final, Complete 08/04/16 Respiratory Virus Panel (PCR) ([facility]) - Final, Complete 08/03/16 Urine Culture - Final, Complete 08/06/16 Gram Stain, Received Pending 08/06/16 Abscess Culture, Received Pending Allergies Coded Allergies: Cefuroxime (Verified Allergy, Intermediate, rash, 08/03/16) Home Medications Scheduled (Celecoxib) 200 Mg Cap, 200 MG PO DAILY, (Reported) Morphine Sulfate (Morphine Sulfate ER) 15 Mg Tabcr, 15 MG PO BID, (Reported) Scheduled PRN Docusate Sodium (Colace) 100 Mg Cap, 100 MG PO BID PRN for CONSTIPATION, ( Reported) Oxycodone/Acetaminophen (Oxycodone/Acetaminophen 5-325 mg) 1 Tab Tab, 1-2 TABS PO Q4H PRN for PAIN, (Reported) SANKET FRY MD August 06, 2016 16:58
--- NOTE | 2016-08-06 17:34 | IPN ---
DATE: 08/06/2016 Min is feeling much better today. He did not have any fevers in the past 12 hours. He is anxious to go home. He was seen in consultation by Dr. Hurt, orthopedic surgery, for evaluation as the family was really concerned about his persistent fever. He had a CT of the thigh which showed increased thickness of the fluid collection between the vastus lateralis and tensor fascia matthias. Ultrasound was recommended. Ultrasound was obtained and that showed a 4.8 x 5.6 x 1.2 cm collection. He went down for ultrasound drainage and there was only 1 mL of fluid that could be drained and sent for culture. Aerobic, anaerobic are still pending. Blood cultures from 08/12/2016, 08/04/2016 and 08/05/2016 all were negative. LABORATORY DATA: White count is 11.8, hemoglobin 12.8, hematocrit 37.5, platelets 277, ESR 84. Sodium 135, potassium 3.6, chloride 97, bicarbonate 27, BUN 11, creatinine 0.9, glucose 143, calcium 8.7, magnesium 2, bilirubin 1, CRP 12.9, down from 19.5. IMPRESSION: Left thigh abscess versus infected hematoma, on IV vancomycin day number two, doing much better. Drainage was attempted and only 1 mL was sent. PLAN: If the patient is afebrile tomorrow, he could be discharged home on Bactrim double strength one tablet by mouth twice a day to followup with orthopedic surgery at [place] and his father is a physician who will be able to take care of him in [place], [place].
--- NOTE | 2016-08-06 18:49 | REP ---
ULTRASOUND GUIDED LEFT LEG ANTERIOR ABSCESS: The procedure was performed under the personal supervision of Dr. Guthrie. The risks and benefits of the procedure were explained to the patient and informed consent was obtained. The left leg anterior abscess was localized using ultrasound guidance. The skin was prepped and draped in a sterile fashion. 1% Xylocaine was used as a local anesthetic. Using ultrasound guidance an 18-gauge needle was inserted and less than 1 mL of red colored fluid was withdrawn and sent to the lab. The patient tolerated the procedure well and there were no immediate complications. Reviewed by PROSPER Devries 08/07/2016 08:31 AEdited and Signed by Jaciel Guthrie MD 08/07/2016 05:08 P
[2016-08-06] MEDS: ACETAMINOPHEN TAB 650MG DOSE (2X325MG) PO PRN (20:02)
[2016-08-07] VITALS (7 sets, daily range): BP systolic 90–121; BP diastolic 52–68
[2016-08-07] MEDS: VANCOMYCIN HCL 1,000 MG, VIAL MATE ADAPTER 1 EACH in D5W 250 ML IV SCH ×3 (03:27→18:55)
[2016-08-07] MEDS: NS 1,000 ML IV SCH (03:28)
[2016-08-07] MEDS: ACETAMINOPHEN TAB 650MG DOSE (2X325MG) PO PRN (05:05)
[2016-08-07 06:48] LABS: MEAN CORPUSCULAR HEMOGLOBIN 31.7 pg (27.0-33.0); MEAN CORPUSCULAR HGB CONC 33.5 g/dl (32.0-36.5); MEAN CORPUSCULAR VOLUME 94.6 fl (80.0-96.0); RED CELL DISTRIBUTION WIDTH 11.2 % (11.5-14.5); WHITE BLOOD COUNT 10.7 K/mm3 (4.0-10.0)
[2016-08-07 07:11] LABS: ALBUMIN 2.6 GM/DL (3.2-5.2); ALBUMIN/GLOBULIN RATIO 0.76 (1.00-1.93); ALKALINE PHOSPHATASE 86 U/L (45-117); ALT/SGPT 39 U/L (12-78); ANION GAP 6 MEQ/L (8-16); AST/SGOT 31 U/L (15-37); BILIRUBIN,TOTAL 0.7 MG/DL (0.2-1.0); BLOOD UREA NITROGEN 11 MG/DL (7-18); CARBON DIOXIDE LEVEL 29 MEQ/L (21-32); CHLORIDE LEVEL 105 MEQ/L (98-107); CREATININE FOR GFR 0.91 MG/DL (0.70-1.30); GLOMERULAR FILTRATION RATE > 60.0 (>60); GLUCOSE, FASTING 91 MG/DL (70-105); MAGNESIUM LEVEL 2.1 MG/DL (1.8-2.4); POTASSIUM SERUM 3.9 MEQ/L (3.5-5.1); SODIUM LEVEL 140 MEQ/L (136-145)
[2016-08-07] MEDS ORDERED: cefTRIAXone SOD 2 GM in D5W MINI-BAG PLUS 50 ML IV SCH (08:45)
[2016-08-07] MEDS: LIDOCAINE 5% OINT 30 GM TOP SCH ×3 (09:00→21:00)
[2016-08-07] MEDS: MORPHINE 15 MG SA TAB PO SCH ×2 (09:00→21:00)
[2016-08-07] MEDS ORDERED: BACTRIM 160MG/800MG DS TAB PO SCH (09:00)
[2016-08-07] MEDS: ENOXAPARIN 40 MG/0.4 ML SYRINGE (J1650) SC SCH (09:43)
[2016-08-07] MEDS: ACETAMINOPHEN TAB 650MG DOSE (2X325MG) PO SCH ×3 (09:44→21:00)
[2016-08-07] MEDS: DOCUSATE SODIUM 100 MG CAP PO SCH ×2 (09:44→21:00)
[2016-08-07] MEDS ORDERED: PIPERACILLIN/TAZOBACTAM SOD 3.375 GM in D5W MINI-BAG PLUS 50 ML IV SCH (11:00)
--- NOTE | 2016-08-07 11:22 | IPN ---
DATE: 08/07/2016 Patient seen and examined at the bedside. Chart has been reviewed. This morning, the patient reports a fever. T-max of 103.0, current temperature 97.9. He reports no new changes in his pain. No increased swelling of the left anterior thigh or left lateral hip. No chills. No cough. No dysuria, urgency or frequency. Able to ambulate with crutches. Current temperature of 97.9, T-max of 103. Pulse 85, respiratory rate 16, blood pressure 115/63, 97% on room air. GENERAL: Awake, alert and oriented times three, answering questions appropriately. LUNGS: Clear to auscultation. No wheezing, rales or rhonchi. HEART: S1, S2. Sinus rhythm. ABDOMEN: Soft. Nontender. Nondistended. Positive bowel sounds. EXTREMITIES: Left hip surgical wound appears to be well healing. No erythema or drainage. No induration. Ecchymotic area is found on the left anterior hip with some tenderness. No fluctuance. White count 10.7, hemoglobin 11, hematocrit 32, platelet count 245, sodium 140, potassium 3.9, chloride 105, bicarbonate 29, BUN 11, creatinine 0.91, glucose of 91, C-reactive protein of 12.9, sed rate of 84. Left anterior thigh abscess culture gram stain no organisms. Anaerobic culture is pending. 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 Melton. Developed fever starting Wednesday and Wednesday up to 102, complaints of chills, admitted for evaluation to rule out abscess. No antibiotics were given. CT extremity shows diffuse edema with tiny foci of air, no drainable abscess. Ultrasound on admission was unremarkable with diffuse fluid, with no definitive drainable fluid. White count was 13,000, sedimentation rate and CRP were elevated. To rule out other etiology for fevers, CT of chest showed no pulmonary embolism (PE). Ultrasound of the lower extremities were negative. Respiratory panel, UA and blood cultures were negative. Dr. Shukri Yanez, infectious disease specialist, was consulted. Patient was started on IV vancomycin 1 gram IV every 8 hours. Repeat imaging studies shows a 4.8 x 1.2 x 5.6 cm small area in the superolateral thigh, which was drained with 1 mL of bloody fluid. White count remains elevated at 10.7, hemoglobin is stable at 12.8 to 11. No active signs of bleeding. CRP remains elevated. He continues to be febrile with 103 temperature, possible infected hematoma. Gram negative coverage was added today with IV Zosyn, despite allergy to cefuroxime which the father states was a rash at the age of 4. No other issues since then. The patient was given a dose of Bactrim initially, which will be discontinued currently. CURRENT ISSUES: 1. Recurrent fevers, possible infected hematoma, left anterior thigh, status post incision and drainage. Cultures are still pending. Currently on IV vancomycin, gram negative coverage with Zosyn will be added today. Infectious disease specialist, Dr. Shukri Yanez, has been consulted and currently managing his acute issues. Orthopedic surgeon for the has been consulted, Dr. Hurt, with no new recommendations. Followup as outpatient with his [facility] surgeon. Per the patient's father, Dr. Bender, they would prefer to have him followup in [place] where he resides and with full family support. They are awaiting discharge and a two day travel prior to reaching [place]. At this time, the patient will not be released due to recurrent fevers, 103 T-max on 08/06 at 1750. Will continue gram negative coverage and gram positive coverage, await culture results. Physical therapy, pain control and bowel regimen. Activity per his orthopedic surgeon.
[2016-08-07] MEDS: PIPERACILLIN/TAZOBACTAM SOD 3.375 GM in D5W MINI-BAG PLUS 50 ML IV SCH ×2 (14:15→20:57)
[2016-08-07] MEDS ORDERED: KETOROLAC 30 MG/ML VIAL (J1885) IV ONE (21:00)
[2016-08-08] VITALS: BP 91/47
[2016-08-08] MEDS: PIPERACILLIN/TAZOBACTAM SOD 3.375 GM in D5W MINI-BAG PLUS 50 ML IV SCH (02:34)
[2016-08-08] MEDS: VANCOMYCIN HCL 1,000 MG, VIAL MATE ADAPTER 1 EACH in D5W 250 ML IV SCH (03:48)
[2016-08-08 04:00] VITALS: BP 107/66
[2016-08-08 06:19] LABS: MEAN CORPUSCULAR HGB CONC 34.4 g/dl (32.0-36.5); MEAN CORPUSCULAR VOLUME 93.2 fl (80.0-96.0); RED CELL DISTRIBUTION WIDTH 11.5 % (11.5-14.5); WHITE BLOOD COUNT 8.9 K/mm3 (4.0-10.0)
[2016-08-08 06:40] LABS: ALBUMIN 2.7 GM/DL (3.2-5.2); ALBUMIN/GLOBULIN RATIO 0.77 (1.00-1.93); ALKALINE PHOSPHATASE 102 U/L (45-117); ALT/SGPT 73 U/L (12-78); ANION GAP 8 MEQ/L (8-16); AST/SGOT 54 U/L (15-37); BILIRUBIN,TOTAL 0.7 MG/DL (0.2-1.0); BLOOD UREA NITROGEN 10 MG/DL (7-18); CALCIUM LEVEL 8.3 MG/DL (8.5-10.1); CARBON DIOXIDE LEVEL 26 MEQ/L (21-32); CHLORIDE LEVEL 106 MEQ/L (98-107); CREATININE FOR GFR 0.99 MG/DL (0.70-1.30); GLOMERULAR FILTRATION RATE > 60.0 (>60); GLUCOSE, FASTING 93 MG/DL (70-105); MAGNESIUM LEVEL 2.2 MG/DL (1.8-2.4); SODIUM LEVEL 140 MEQ/L (136-145); TOTAL PROTEIN 6.2 GM/DL (6.4-8.2)
[2016-08-08] MEDS ORDERED: CEFD1CAP8 PO (07:20)
[2016-08-08] MEDS ORDERED: MIRA33504 PO ×2 (07:20→11:59)
[2016-08-08] MEDS ORDERED: BACT800T5 PO ×3 (07:20→11:56)
[2016-08-08] MEDS ORDERED: SENO8.6T10 PO (07:20)
[2016-08-08] MEDS ORDERED: MSIR30TA PO (07:20)
[2016-08-08] MEDS ORDERED: MORP15TA2 PO ×2 (07:25→11:57)
[2016-08-08 08:00] VITALS: BP 117/68
[2016-08-08] MEDS: ENOXAPARIN 40 MG/0.4 ML SYRINGE (J1650) SC SCH (09:00)
[2016-08-08] MEDS: ACETAMINOPHEN TAB 650MG DOSE (2X325MG) PO SCH (09:00)
[2016-08-08] MEDS: LIDOCAINE 5% OINT 30 GM TOP SCH (09:00)
[2016-08-08] MEDS: MORPHINE 15 MG SA TAB PO SCH (09:00)
[2016-08-08] MEDS: DOCUSATE SODIUM 100 MG CAP PO SCH (09:00)
[2016-08-08] MEDS ORDERED: CEFDINIR 300 MG CAP (OMNICEF) PO ONE (09:30)
[2016-08-08] MEDS ORDERED: AUGM875T27 PO ×2 (10:01→11:56)
[2016-08-08 11:00] VITALS: BP 113/64
[2016-08-08] MEDS ORDERED: COLA100C3 PO (11:56)
[2016-08-08 12:00] VITALS: BP 131/70
--- NOTE | 2016-08-09 09:32 | DSES ---
DATE OF ADMISSION: 08/03/2016 DATE OF DISCHARGE: 08/08/2016 PRIMARY CARE PHYSICIAN: [facility] CONSULTANTS DURING THIS ADMISSION: Orthopedic surgeon, Dr. Pietro Hurt. Infectious disease specialist, Dr. Shukri Yanez PRIMARY DISCHARGE DIAGNOSES: 1. Left thigh abscess versus infected hematoma. 2. Left labral tear repair arthroscopically at [facility], Dr. Melton. PROCEDURES DURING THIS ADMISSION: Ultrasound-guided abscess drainage 08/06/2016. DISCHARGE MEDICATIONS: - Augmentin 875 mg by mouth twice a day for 10 days - Colace one tablet twice a day - morphine sulfate 15 mg every 4 hours as needed for pain, maximum daily doses of 6, dispensed 90. - MiraLAX one packet 17 grams daily - Bactrim one tablet by mouth twice a day for 10 days HOSPITAL COURSE: This is a 25-year-old male who was in his usual state of health with no medical problems when he suffered from a left labral tear. He was referred to Dr. Melton, orthopedic surgery at [place]. The patient underwent left labral tear repair laparoscopically on and began to have a high grade temperature and chills, 102-103 at home on Wednesday into Wednesday. The patient presented to the emergency room for evaluation of recurrent fevers. The patient had a fever of unknown source. CT of the extremity showed no significant fluid collection. There was diffuse edema on the proximal left thigh laterally in superficial subcutaneous soft tissue and in deeper soft tissues. Tiny sliver of fluid in the fascial plane between the vastus lateralis and tensor fascia matthias with thickness of the fluid density about 4 mm with a few scattered tiny foci of air. Fluid does not appear to be drainable. Ultrasound 08/03/2016 showed no evidence of deep vein thrombosis (DVT) bilateral lower extremities. Ultrasound of the extremity shows no discrete fluid collection or drainable collection or abscess. For further evaluation of fever origin, CT chest performed showed no pulmonary embolism (PE). Dr. Shukri Yanez was consulted from infectious disease and recommended vancomycin 1 gram every 8 hours. Despite maximum temperature (T max) of 101.7 and recurrent temperature of 103 on vancomycin, the patient remained clinically stable. Orthopedic surgeon, Dr. Miki Hurt was consulted , recommended continuation of antibiotics. Repeat imaging study was performed on 08/06/2016, which showed mildly increased in thickness of the hypodensity in the fascial plane between the vastus lateralis and tensor fascia matthias. Ultrasound of the extremity shows a complex fluid small area of 4.8 x 1.2 x 5.6 cm. Ultrasound-guided drainage was performed on 08/06/2016 with 1 mL of red-colored fluid withdrawn. Microbiology of the abscess fluid left anterior thigh 2016 showed no organism seen. Due to recurrent fevers with maximum temperature of 101 and 103 on 08/06/2016, the patient was started on intravenous Zosyn at grams every 6 hours with resolution of fever. The patient' s white count remained normal at 8.9, sedimentation rate was peaked at 84, currently at 68. His CRP decreased from admission of 19.5 to discharge of 7.96. DISCHARGE LABS: White count 8.9, hemoglobin 11, hematocrit 31, platelet count 267. Sodium 140, potassium 4, chloride 106, bicarbonate 26, BUN 10, creatinine 0.99, glucose of 93, calcium 8.3, magnesium 2.2, total bilirubin 0.7, AST 54, ALT 73, alkaline phosphatase 102. C-reactive protein 7.96, admission C-reactive protein 19.5. The sedimentation rate peaked at 84, currently at 68. Microbiology: Blood culture 08/03/2016: Negative. Urine culture 08/03/2016: No growth. Respiratory panel 08/04/2016: Negative. Methicillin-resistant Staphylococcus aureus (MRSA) screen of 08/04/2016: Negative. Two sets of blood cultures 08/04/2016 and 08/05/2016: Negative. Abscess culture 08/06/2016: No growth. No organism seen. No growth aerobically. Many RBCs. Anaerobic culture on 08/06/2016: No growth anaerobically. IMAGING STUDIES: Ultrasound of the extremity: No discrete fluid collection or drainable collection or abscess 08/03/2016. Vascular ultrasound bilateral lower extremities 08/03/2016: No evidence of DVT. Chest x-ray on 08/03/2016: No acute disease. Extremity on 08/04/2016: Diffuse edema proximal left thigh laterally in superficial subcutaneous soft tissue as well as in the deeper tissue. Tiny sliver of fluid in the fascial plane measuring about 4 mm. A few scattered foci of air. Ultrasound of the extremity shows 4.8 x 1.2 x 5.6 cm small area of complex fluid. TIME SPENT ON DISCHARGE: 50 minutes. FOLLOWUP ISSUES: Followup with orthopedic surgeon, primary care physician within 3-5 days of hospital discharge. LUCINDA
== END 2016-08-08 12:48 | disposition home or self-care (01) | DRG 863 ==
LOC: EDBD 01:14 → M ED 05:48 → M ED INP 11:49 → M PED 16:09
PROVIDERS: ADMIT Internal Medicine; ATTEND General Practice
DX: T81.4XXA Infection following a procedure, initial encounter (principal); M96.840 Postprocedural hematoma of a musculoskeletal structure following a musculoskeletal system procedure; Z88.2 Allergy status to sulfonamides; Z79.899 Other long term (current) drug therapy; Y83.8 Other surgical procedures as the cause of abnormal reaction of the patient, or of later complication, without mention of misadventure at the time of the procedure